=== PATIENT | male | born 1965 | race American Indian/Alaskan Native ===

== ENCOUNTER 2016-09-17 13:01 | Day surgery (SDC) | payer OTHER ==
[2016-09-17] MEDS ORDERED: NACL 0.9% 1000 ML 1,000 ML IV SCH (15:00)
--- NOTE | 2016-09-17 16:16 | Anesthesia Day of Surgery ---
Anesthesia Day of Surgery - Day of Surgery Patient Examined: Yes Patient H&P Reviewed: Yes Patient is NPO: Yes
--- NOTE | 2016-09-17 16:20 | Anesthesia Consultation ---
Anesthesia Consult and Med Hx - Airway Anesthetic Teeth Evaluation: Good ROM Head & Neck: Adequate Mental/Hyoid Distance: Adequate Mallampati Class: Class II Intubation Access Assessment: Probably Good - Pulmonary Exam CTA: Yes - Cardiac Exam Cardiac Exam: RRR - Pre-Operative Health Status ASA Pre-Surgery Classification: ASA2 Proposed Anesthetic Plan: MAC - Pulmonary Hx Smoking: Yes (past smoker quit 2 years ago) SOB: Yes (recent. scheduled for stress test) - Gastrointestinal Hx Gastroesophageal Reflux Disease: Yes (occ. controlled on meds) - Other Systems Hx Alcohol Use: Yes (occ) - Additional Comments Anesthesia Medical History Comments: Pt has had recent SOB when walking up stairs but no SOB when biking. Pt scheduled for stress test in a few weeks.NPO after MN. No chest pain. No prior anesthetic complications.Increased cholesterol but on no meds.
[2016-09-17] MEDS ORDERED: NACL 0.9% 1000 ML ONE ×2 (16:44→19:02)
[2016-09-17] MEDS ORDERED: DIPRIVAN 10 MG/ML IV ONE ×2 (18:56)
[2016-09-17] MEDS ORDERED: XYLOCAINE MPF 2% ONE (19:02)
[2016-09-17] MEDS ORDERED: WATER FOR IRRIG STERILE IR ONE (19:24)
--- NOTE | 2016-09-17 19:38 | Operative Report ---
Operative Report Operative Report: Date of procedure: 09/17/2016 Procedure: Colonoscopy with Hot biopsy Polypectomy. Attending physician: Tk Arango MD Logging Superintendent: Tk Arango MD Indication: Patient is a 50-year-old male who presents for screening colonoscopy. Consent: Informed consent was obtained after advising the patient and family regarding nature of this procedure, its indications, potential benefits as well as possible complications including but not limited to bleeding perforation and adverse reaction to medication, infection as well as other cardiopulmonary complications. An informed written and verbal consent was then obtained after due opportunity was provided for questions and answers. Monitoring: Patient was monitored continuously with pulse oximetry and electrocardiographic recordings as well as blood pressure recordings. Vital signs remained stable throughout this procedure with no untoward events. Preoperative assessment: Patient was assessed immediately prior to this procedure for capacity to tolerate monitored anesthesia care and moderate sedation as well as general anesthesia. Patient's ASA classification is 2, Mallampati class is 2, Hyomental distance is 3. Instrument: Fujinon videocolonoscope Medications: Propofol given intravenously in divided doses. For details please refer to anesthesia records. Description of procedure: Patient was placed in the left lateral decubitus position after achieving sedation, a digital rectal examination was performed following which the colonoscope was introduced into the anal verge and advanced to the cecum which was identified by the cecal valve, the appendiceal orifice, as well as by the cecal strap and direct transillumination. The colonoscope was subsequently withdrawn with careful inspection of all mucosal surfaces. Patient tolerated this procedure well and was subsequently taken to the recovery room. The following findings were noted. Findings: Patient had a diminutive polyp in the sigmoid colon which were removed by hot biopsy polypectomy. Patient had a few scattered diverticula in the sigmoid colon and the descending colon. The rest of the colon to the cecum was normal. On the retroflex view at the anal verge, patient had internal hemorrhoids. Impression: Diminutive colon polyps status post hot biopsy polypectomy. Diverticular disease of the colon Internal hemorrhoids. Plan: Follow pathology report. High-fiber diet. Repeat colonoscopy in 5 years of polyp is adenomatous.
--- NOTE | 2016-09-17 19:40 | Discharge Summary ---
Short Stay Discharge Plan Activity: advance as tolerated Weight Bearing Status: Weight Bear as Tolerated Diet: regular Follow up with: LIUDMILA WILHELM DO [Primary Care Provider] - 7 Days
[2016-09-17 20:20] VITALS: BP 145/106
--- NOTE | 2016-09-18 01:57 | Post Anesthesia Evaluation ---
- Post Anesthesia Evaluation Patient Participated: Yes Airway Patent: Yes Stable Respiratory Function: Yes Nausea/Vomiting: No Temp > 96.8F: Yes Pain Manageable: Yes Adequeate Hydration: Yes Anesthesia Complications: No Block Receding Appropriately: Not Applicable Patient on Ventilator: No
== END 2016-09-17 13:02 | disposition home or self-care (01) ==
LOC: GIO 13:01
PROVIDERS: ATTEND Internal Medicine Gastroenterology
DX: Z12.11 Encounter for screening for malignant neoplasm of colon (principal); K63.5 Polyp of colon; K57.30 Diverticulosis of large intestine without perforation or abscess without bleeding; K64.8 Other hemorrhoids
CPT/HCPCS: 45384; 88305; J2704; J7030